=== PATIENT | female | born 1980 | race Two or more races ===

== ENCOUNTER 2016-10-03 13:08 | Emergency (ER) | payer MEDICAID ==
[~2016-10-03] VITALS: Ht 167.6 cm; Wt 90.3 kg
[2016-10-03 13:19] VITALS: BP 130/62
[2016-10-03] MEDS ORDERED: KETOROLAC TROMETH 60MG/2ML VIAL IM ONE (16:15)
== END 2016-10-03 17:20 | disposition home or self-care (01) ==
LOC: ER 13:20
DX: M54.41 Lumbago with sciatica, right side (principal); G89.29 Other chronic pain
CPT/HCPCS: 96372; 99283; J1885

== ENCOUNTER 2020-12-13 08:37 | Emergency (ER) | payer SELFPAY ==
[~2020-12-13] VITALS: Ht 165.1 cm; Wt 85.7 kg
[2020-12-13 09:09] VITALS: BP 131/92
[2020-12-13 09:11] LABS: Urine Bacteria MOD /hpf (None Seen); Urine Blood Negative /uL (Negative); Urine Mucus FEW (None Seen); Urine Specific Gravity 1.019 (1.001-1.035); Urine WBC 17 /hpf (0 - 5)
== END 2020-12-13 09:49 | disposition home or self-care (01) ==
LOC: ER 08:37
DX: N39.0 Urinary tract infection, site not specified (principal); T50.Z95A Adverse effect of other vaccines and biological substances, initial encounter; X58.XXXA Exposure to other specified factors, initial encounter; Y93.89 Activity, other specified; Y92.89 Other specified places as the place of occurrence of the external cause; Y99.8 Other external cause status
CPT/HCPCS: 71046; 81001; 81025

== ENCOUNTER 2023-02-21 11:02 | Emergency (ER) | payer SELFPAY ==
[~2023-02-21] VITALS: Ht 165.1 cm; Wt 90.0 kg
[2023-02-21 12:41] VITALS: BP 105/76
[2023-02-21] MEDS ORDERED: KETOROLAC TROMETH 30 MG/ML 1ML VIAL IM ONE (12:45)
[2023-02-21] MEDS ORDERED: SODIUM CHLORIDE 0.9% 1,000 ML IV ONE (13:30)
[2023-02-21 14:06] LABS: Urine Bacteria NONE SEEN /hpf (None Seen); Urine Blood 3+ /uL (Negative); Urine Mucus FEW (None Seen); Urine Specific Gravity 1.014 (1.001-1.035); Urine WBC <1 /hpf (0 - 5)
[2023-02-21] MEDS ORDERED: ACET-1079 PO (15:21)
[2023-02-21] MEDS ORDERED: LIDO5PAD8 EX (15:21)
[2023-02-21] MEDS ORDERED: CYCL-839 PO (15:21)
[2023-02-21] MEDS ORDERED: CEPH500T PO (15:26)
== END 2023-02-21 15:36 | disposition home or self-care (01) ==
LOC: ER 11:07
DX: S39.012A Strain of muscle, fascia and tendon of lower back, initial encounter (principal); M54.32 Sciatica, left side; N39.0 Urinary tract infection, site not specified; X58.XXXA Exposure to other specified factors, initial encounter; Y93.89 Activity, other specified; Y92.89 Other specified places as the place of occurrence of the external cause; Y99.8 Other external cause status
CPT/HCPCS: 72131; 81001; 81025; 96360; 96372; 99285; J1885; J7030; 96361

== ENCOUNTER 2024-01-26 17:37 | Emergency (ER) | payer SELFPAY ==
[~2024-01-26] VITALS: Ht 167.6 cm; Wt 98.9 kg
[~2024-01-26 17:37] MED LIST: ACET-1079 PO; CEPH500T PO; CYCL-839 PO; LIDO5PAD12 EX
[2024-01-26] MEDS ORDERED: KETOROLAC TROMETH 60MG/2ML VIAL IM ONE (21:00)
[2024-01-26] MEDS ORDERED: IBUP-1455 PO (21:01)
[2024-01-26] MEDS ORDERED: CYCL-839 PO (21:01)
[2024-01-26 22:30] VITALS: BP 121/54; PULSE 52; RESP 5; TEMP 98.4; O2SAT 100
[2024-01-26] MEDS: IBUPROFEN 800 MG TAB PO ONE (22:33)
== END 2024-01-26 22:34 | disposition home or self-care (01) ==
LOC: ER 17:37
DX: R51.9 Headache, unspecified (principal); M54.2 Cervicalgia; M54.9 Dorsalgia, unspecified; R07.89 Other chest pain; M25.511 Pain in right shoulder; M79.604 Pain in right leg; Z79.899 Other long term (current) drug therapy; V89.2XXA Person injured in unspecified motor-vehicle accident, traffic, initial encounter; Y93.89 Activity, other specified; Y92.410 Unspecified street and highway as the place of occurrence of the external cause; Y99.8 Other external cause status